=== PATIENT | female | born 1970 | race Caucasian/White ===

== ENCOUNTER 2020-09-18 13:34 | Outpatient (CLI) | payer BC, SELFPAY ==
--- NOTE | 2020-09-23 16:22 | WPDHOLTEREM ---
Holter/Event Monitor Holter/Event Monitor Date of procedure: 09/18/20 Procedure Type: 48 hour holter monitor Indications: Palpitations Conclusion: 1. 48 hour holter monitor on 09/18/20. 2. Underlying rhythm is sinus rhythm. HR range 46-130 bpm; average HR 77 bpm. 3. There are 15 premature supraventricular complexes, 1 supraventricular couplet and 1 supraventricular triplet. No supraventricular tachycardia. 4. No premature ventricular complexes. No ventricular tachycardia. 5. No sinoatrial or atrioventricular blocks. No significant pauses greater than 2 seconds. 6. No symptoms available for correlation.
== END 2020-09-18 13:35 | disposition home or self-care (01) ==
LOC: ANHCARD 13:36
PROVIDERS: PCP Physician Assistant; Visit Provider Physician Assistant
DX: R00.2 Palpitations (principal)
CPT/HCPCS: 93225; 93226

== ENCOUNTER 2023-10-15 10:20 | Emergency (ER) | payer BC, SELFPAY ==
[2023-10-15 10:37] VITALS: BP 143/74; PULSE 84; RESP 16; TEMP 37; O2SAT 98
--- NOTE | 2023-10-15 10:54 | ED.ABDPAIN ---
HPI - Abdominal Pain General Chief Complaint: Urogenital-Female Stated Complaint: left side pain Time Seen by Provider: 10/15/23 10:40 Source: patient Mode of arrival: ambulatory Limitations: no limitations History of Present Illness HPI narrative: Adriana is a 53-year-old female patient presenting to the clinic today with complaints of left flank pain radiating into the left lower abdomen. She reports his symptoms have been going off and on for 2 weeks. Was having the symptoms and discussed the case with tele doc and was given prescription for Macrobid to treat a UTI on September 27. States that this did improve her symptoms however her symptoms have now returned. Is reporting a deep ache in her left flank/back radiating into the left lower quadrant. Denies any urinary symptoms at this time. Denies any fever or chills. No history of kidney stones. Related Data Home Medications Medication Instructions Recorded Confirmed acetaminophen 500 mg tablet 500 mg PO Q6H PRN 09/11/20 08/24/22 (Tylenol Extra Strength) cholecalciferol (vitamin D3) 25 25 mcg PO DAILY 09/11/20 10/15/23 mcg (1,000 unit) capsule ibuprofen 200 mg tablet 200 mg PO Q6H PRN Pain, Mild 09/11/20 10/15/23 Allergies Allergy/AdvReac Type Severity Reaction Status Date / Time No Known Allergies Allergy Mild Verified 10/15/23 10:50 rox Allergy Unknown unknown Verified 08/24/22 08:34 Review of Systems Review of Systems: Pertinent positives per HPI. Patient denies any fever, chills, rash, headache, visual changes, dizziness, cough, runny nose, sore throat, shortness of breath, chest pain, palpitations, nausea, vomiting, diarrhea, constipation, abdominal pain, or any urinary issues. FOR[facility]LY [facility] Surgical History Surgical History H/O wrist surgery Family History Family History Father Family history of malignant neoplasm of brain, Onset Age: 51 Mother Ovarian cancer Grandparent Depression Hypertension Carcinoma of colon Other Family history of lung cancer Family history of lymphoma Family history of malignant neoplasm of cervix Social History Social History Smoking status: Never smoker Alcohol intake: never Substance use: unknown Comments At the time of my signature, I reviewed and agree with the nursing past medical, surgical, social, and family history. There is no relevant family history pertinent to the patient complaint. Exam Narrative: General: Well-developed, well nourished, in no apparent distress. Head: Normocephalic, atraumatic. Cardio: Regular rate and rhythm, s1 and s2 normal, no murmur appreciated. Resp: Clear to auscultation bilaterally, no rhonchi, rales, wheezing or rubs. Abdomen: Soft, pliable, bowel sounds present in all quadrants, left lower quadrant tender to palpation, no organomegly, left CVAT tenderness. Course Course Emergency Course: Portions of this record may have been created with voice recognition software. Level of Care: Express Care Visit Vital Signs Vital signs: Vital Signs Temperature 37.0 C 10/15/23 10:37 Pulse Rate 84 10/15/23 10:37 Respiratory Rate 16 10/15/23 10:37 Blood Pressure 143/74 H 10/15/23 10:37 Pulse Oximetry 98 10/15/23 10:37 Temperature 37.0 C 10/15/23 10:37 Pulse Rate 84 10/15/23 10:37 Respiratory Rate 16 10/15/23 10:37 Blood Pressure 143/74 H 10/15/23 10:37 Pulse Oximetry 98 10/15/23 10:37 Vital signs reviewed MDM - Abdominal Pain MDM Narrative Medical decision making narrative: At the time of visit patient is resting comfortably on the exam table. Patient appears to be nontoxic. UA positive for 2+ blood and trace of protein. Plan: Urine is positive for 2+ blood patient is having left flank pain radiating into left lower quadrant. I suspect
== END 2023-10-15 11:03 | disposition short-term general hospital (02) ==
PROVIDERS: Emergency Provider Nurse Practitioner Family; PCP Physician Assistant
DX: R10.9 Unspecified abdominal pain (principal); R10.32 Left lower quadrant pain; R31.9 Hematuria, unspecified
CPT/HCPCS: 81003; 99212; G0463

== ENCOUNTER 2023-10-15 11:15 | Emergency (ER) | payer BC, SELFPAY ==
--- NOTE | ~2023-10-15 | CT_ITS ---
EXAMINATION: CT abdomen pelvis wo con DATE: 10/15/2023 12:21 INDICATION: Left flank pain. TECHNIQUE: Computed tomography (CT) of the abdomen and pelvis was performed without intravenous contr ast. Automated exposure control and iterative reconstruction technique were employed. The dose-length product was 626.25 mGy-cm. COMPARISON: None. FINDINGS: The visualized portions of the lung bases demonstrate mild atelectasis. No pleural effusion . The heart size is normal. No pericardial effusion. There is a small sliding hiatal hernia. The live r is normal. The gallbladder is distended, likely secondary to fasting. The spleen, pancreas, adrenal glands, and right kidney are normal. There are 9 mm and 2 mm stones in left kidney. There are no dil ated loops of bowel. The appendix is normal. There are no pathologically enlarged lymph nodes. There is no free intraperitoneal fluid. There is mild lumbar spondylosis. IMPRESSION: 1. Nonobstructing left kidney stones. 2. Small sliding hiatal hernia. Reviewed, dictated and finalized at location A.
--- NOTE | 2023-10-15 11:24 | ED.BACK ---
HPI - Back Pain/Injury General Chief Complaint: Urogenital-Female Stated Complaint: flank pain Time Seen by Provider: 10/15/23 11:17 History of Present Illness HPI Narrative: Patient presenting with left-sided flank pain, she had had symptoms for the last 2 weeks but got much worse last night and to the point where she felt like she was going to throw up, and this morning she did ibuprofen but was still having some pain so she went to the Urgent Care, there was some blood in her urine, so they sent her here to make sure she does not have a kidney stone. She has never had a kidney stone before. She does state that a few weeks ago she had been having some dysuria and UTI symptoms and had and given antibiotics and that overall started feeling better, but she did notice that yesterday her urine which frothy. Related Data Home Medications Medication Instructions Recorded Confirmed acetaminophen 500 mg tablet 500 mg PO Q6H PRN 09/11/20 08/24/22 (Tylenol Extra Strength) cholecalciferol (vitamin D3) 25 25 mcg PO DAILY 09/11/20 10/15/23 mcg (1,000 unit) capsule ibuprofen 200 mg tablet 200 mg PO Q6H PRN Pain, Mild 09/11/20 10/15/23 Allergies Allergy/AdvReac Type Severity Reaction Status Date / Time No Known Allergies Allergy Mild Verified 10/15/23 10:50 rox Allergy Unknown unknown Verified 08/24/22 08:34 Review of Systems Review of Systems: All systems reviewed & are unremarkable except as noted in HPI and below PMFSH Surgical History Surgical History H/O wrist surgery Family History Family History Father Family history of malignant neoplasm of brain, Onset Age: 51 Mother Ovarian cancer Grandparent Depression Hypertension Carcinoma of colon Other Family history of lung cancer Family history of lymphoma Family history of malignant neoplasm of cervix Social History Social History Smoking status: Never smoker Alcohol intake: never Substance use: unknown Exam Narrative: EXAMINATION OF ORGAN SYSTEMS/BODY AREAS: Constitutional: Vital signs per nursing GENERAL:[No acute distress, non-toxic appearing.] HEAD: Normal with no signs of head trauma. EYES: EOMI, conjunctiva normal ENT: Hearing grossly intact LUNGS: Nonlabored breathing. HEART: [Regular rate and rhythm] ABD: [Soft], [nontender to palpation] BACK: L CVA tenderness EXT: Normal range of motion SKIN: [No rashes or lesions.] NEURO: [Alert and oriented x 3. No gross focal sensory or strength deficits.] PSYCH: Normal affect Course Vital Signs Vital signs: Vital Signs Temperature 98 F 10/15/23 11:29 Pulse Rate 73 10/15/23 11:29 Respiratory Rate 18 10/15/23 11:29 Blood Pressure 117/71 10/15/23 11:29 Pulse Oximetry 100 10/15/23 11:29 Oxygen Delivery Room Air 10/15/23 11:29 Temperature 98.0 F 10/15/23 13:11 Pulse Rate 90 10/15/23 13:11 Respiratory Rate 18 10/15/23 13:11 Blood Pressure 130/90 10/15/23 13:11 Pulse Oximetry 99 10/15/23 13:11 Oxygen Delivery Room Air 10/15/23 11:29 MDM - Back Pain/Injury MDM Narrative Medical decision making narrative: 1) Differential diagnosis: Pyelonephritis, kidney stone 2) Comorbidities: Low vitamin-D 3) External notes reviewed: n/a 4) History sources independently obtained from: Urgent care provider 5) Discussion of management with: n/a 6) Independent interpretation of: CT abdomen/pelvis which does show 1 large and 1 smaller stone in left kidney, no obvious hydronephrosis 7) Diagnostic tests or therapies considered but not ordered: Patient declining pain medication at this time 8) Social determinants of health: n/a 9) Shared decision makin-year-old female presenting with left flank pain that was much worse yesterday but is starting to get slightly better,
[2023-10-15 11:29] VITALS: BP 117/71; PULSE 73; RESP 18; TEMP 36.6; O2SAT 100
[2023-10-15 11:49] LABS: Appearance Urine Clear (Clear); Bacteria Urine None Seen /hpf; Bilirubin Urine Negative (Negative); Blood Urine Trace (Negative); Color Urine Yellow (Yellow); Glucose Urine UA Negative (Negative); Ketones Urine Negative (Negative); Leukocyte Esterase Ur Negative LEU/UL (Negative); Nitrate Urine Negative (Negative); Non Pathogenic Casts 0-2; Protein Urine Negative (Negative); RBC Urine 0-2 /hpf (0-2); Specific Grav Ur 1.008 (1.001-1.035); Squamous Epithelial Cell Urine None Seen /hpf (Few); Urobilinogen Urine 0.2 mg/dL (<2.0); WBC Urine 0-5 /hpf (0-3); pH Urine 5.5 (5.0-9.0)
[2023-10-15 12:03] LABS: Add Urine Microscopic? YES
[2023-10-15 13:11] VITALS: BP 130/90; PULSE 90; RESP 18; TEMP 36.7; O2SAT 99
== END 2023-10-15 13:13 | disposition home or self-care (01) ==
PROVIDERS: Emergency Provider Emergency Medicine; PCP Physician Assistant
DX: N20.0 Calculus of kidney (principal)
CPT/HCPCS: 74176; 81001; 81003; 99284

== ENCOUNTER 2025-03-19 18:29 | Emergency (ER) | payer BC, SELFPAY ==
--- NOTE | ~2025-03-19 | CT_ITS ---
CT abdomen pelvis wo con INDICATION:llq abd pain, poss stone . COMPARISON: None. TECHNIQUE: Axial 2.5 mm images of the abdomen were obtained without IV or oral contrast. Diagnostic sensitivity is limited due to lack of IV contrast. FINDINGS: The lung bases are clear. The liver parenchyma is unremarkable. No intrahepatic mass or ductal dilatation is evident. The gallbladder is unremarkable. The pancreas and spleen are normal in appearance. The adrenal glands are symmetric in size. The kidneys are unremarkable. 4 mm left renal stone. There is left hydronephrosis secondary to a 4 mm stone at the left ureteropelvic junction. The stomach and bowel loops are unremarkable. Appendicolith is noted within the appendix. There is no evidence of acute appendicitis. The bladder and rectum are normal. No free intraperitoneal fluid or air is evident. There is no significant retroperitoneal lymphadenopathy. The aorta, visceral vessels and renal arteries demonstrate normal caliber. The lower thoracic and lumbar vertebrae are in normal alignment. IMPRESSION: No acute abnormality is noted in the abdomen and pelvis. Left hydronephrosis secondary to a 4 mm stone at the UPJ. All CT scans at this facility are performed using low dose modulation techniques as appropriate to perform exam including the following: automated exposure control; use of iterative reconstruction technique; adjustment of the mA and/or kV according to patient size (this includes techniques or standardized protocols for targeted exams where dose is matched to indication/reason for exam). Reviewed, dictated and finalized at location S. IMPRESSION: No acute abnormality is noted in the abdomen and pelvis. Left hydronephrosis secondary to a 4 mm stone at the UPJ. All CT scans at this facility are performed using low dose modulation techniqu es as appropriate to perform exam including the following: automated exposure c ontrol; use of iterative reconstruction technique; adjustment of the mA and/or kV according to patient size (this includes techniques or standardized protocol s for targeted exams where dose is matched to indication/reason for exam).
[2025-03-19 18:38] VITALS: BP 138/76; PULSE 69; RESP 16; TEMP 36.4; O2SAT 100
[2025-03-19 18:48] LABS: BEDSIDEPREGUCG Negative (Negative)
[2025-03-19 18:51] LABS: Hematocrit 42.3 % (37.0-47.0); Hemoglobin 13.8 g/dL (12.0-15.0); Immature Granulocyte Percent A 0.2 % (0-0.5); Lymphocytes Absolute Auto 1.01 K/mm3 (0.9-3.2); Mean Corpuscular HGB Conc 32.6 g/dl (32-36); Mean Corpuscular Hemoglobin 30.0 pg (26-34); Mean Corpuscular Volume 92.0 fl (80-100); Nucleated Red Blood Cells Absolute Auto 0.000 K/mm3 (0.0-0.012); Nucleated Red Blood Cells Perc 0.0 % (0.0-0.2); Platelet Count Result 305 k/mm3 (150-375); Red Blood Count 4.60 M/mm3 (4.2-5.4); White Blood Count 6.4 K/mm3 (4.5-10.0)
[2025-03-19 19:04] LABS: Add Urine Microscopic? YES; Appearance Urine Turbid (Clear); Budding Yeast Urine Present /hpf; Glucose Urine UA Negative (Negative); Leukocyte Esterase Ur Trace LEU/UL (Negative); Need Manual Microscopic Reviewed; Nitrate Urine Negative (Negative); Non Pathogenic Casts 0-2; Specific Grav Ur 1.028 (1.001-1.035)
[2025-03-19 19:18] LABS: Alanine Aminotransferase 26 U/L (6-35); Albumin Level 4.8 g/dL (3.5-5.1); Alkaline Phosphatase 131 U/L (38-126); Anion Gap 8 mmol/L (4-12); Aspartate Amino Transferase 30 U/L (14-36); Bilirubin,Total 0.6 mg/dL (0.2-1.3); Blood Urea Nitrogen 19 mg/dL (7-17); Calcium 10.1 mg/dL (8.4-10.2); Carbon Dioxide 27 mmol/L (22-30); Chloride 101 mmol/L (98-107); Estimated CRCL calculation 81 ml/min; Estimated Glomerular Filt Rate > 60; Glucose 122 mg/dL (65-110); Potassium 4.0 mmol/L (3.4-5.0); Sodium 136 mmol/L (137-145); Total Protein 8.2 g/dL (6.3-8.2)
--- OUTSIDE RECORDS SUMMARY | 2025-03-19 20:02 | XMS_ITS | Clinical Summary ---
Author Organization [facility] Address [address] [place] [address] Care Team Providers Care Wafer Production Lead Worker Name Role Phone Hardeep Isaac MD Primary Care Provider [phone] Allergies Active Allergy Reactions Criticality Noted Date Comments Food Allergy Formula Swelling Medium 09/08/2018 Onward Toribio Unknown 11/09/2018 Medications acetaminophen (TYLENOL) 500 mg tablet Take 1 tablet (500 mg total) by mouth every 6 (six) hours as needed for pain Active ergocalciferol (VITAMIN D) 50,000 unit capsuleIndicati ons:Vitamin D deficiency Take 1 capsule (50,000 Units total) by mouth once a week For 12 wks, then monthly 4 capsule 11 03/01/2023 Active Active Problems Problem Noted Date Diagnosed Date History of colon polyps 09/30/2022 Swollen abdomen 2017 Immunizations Immunization Administration Dates Next Due Influenza, Quadrivalent, Spl it, Preservative Free, Intramuscular 04/02/2020,03/09/2019,03/20/2018 Influenza, Trivalent, IM (MDV) 03/27/2012 Influenza, Trivalent, Preser vative Free, Intramuscular 03/15/2017,03/16/2016 Influenza, Unspecified 02/17/2023 Surgical History Surgery Date Site/Laterality Comments WRIST FRACTURE SURGERY Right FLUORO GUIDED INJECTION SHOULDER RIGHT 09/28/2018 Ri ght FLUORO GUIDED INJECTION SHOULDER RIGHT 03/01/2019 Ri ght FLUORO GUIDED INJECTION SHOULDER LEFT 05/12/2021 Lef t KIDNEY STONE SURGERY 11/28/2023 - 12/28/2023 Medical History Medical History Date Comments Heart palpitations Family History Medical History Relation Name Comments Brain cancer Father Cancer Father Colon cancer Father's Sister Lymphoma Father's Sister Heart disease Maternal Grandmother Hypertension Maternal Grandmother Cancer Mother Ovarian cancer Mother Breast cancer Niece Relation Name Status Comments Father Father's Sister Maternal Grandmother Mother Niece Other Social History Tobacco Use Types Packs/Day Years Used Date Smoking Tobacco: Never Smokeless Tobacco: Never Tobacco Cessation:Counseling Given: Not Answered Alcohol Use Standard Drinks/Week Comments Yes 0 (1 standard drink = 0.6 oz pur e alcohol) rare AUDIT-C Answer Date Recorded Q1: How often do you have a drink containing alcohol? Never 05/07/2024 Q2: How many drinks containi ng alcohol do you have on a typical day when you are drinking? Patient does not drink Q3: How often do you have si x or more drinks on one occasion? Never 05/07/2024 Personal Safety Answer Date Recorded Have you ever been in or are you currently in a harmful physical or emotional relationship or is someone making you feel afraid or unsafe? Denies 12/15/2022 Comments No Sex and Gender Information Value Date Recorded Sex Assigned at Not on file Legal Sex Female 8:05 AM TRANSPORTATION EQUIPMENT PAINTER Gender Identity Not on file Sexual Orientation Not on file Obstetrics History Para Term AB IAB SAB Ectopic Multiple Livin g Live Births 5 3 3 2 2 3 3 Date Outcome GA Total Labor Labor/2nd/3rd Weight Sex Type Anes PTL Jackelin A1 A5 Name Clin 1996 Term M Vag-S pont Living Complications:Other (Comment ) 2000 Term F Vag-S pont Living Complications:None 2003 SAB Demise 2004 SAB Demise 2008 Term F Vag-S pont Living Complications:None Last Filed Vital Signs Vital Sign Reading Time Taken Comments Blood Pressure 107/73 05/07/2024 10:33 AM TRANSPORTATION EQUIPMENT PAINTER Pulse 71 02/09/2023 12:12 PM CDT Temperature 36.3 C (97.3 F) 12/15/2022 12:17 PM CDT Respiratory Rate 16 12/15/2022 12:40 PM CDT Oxygen Saturation 95% 12/15/2022 12:40 PM CDT Inhaled Oxygen Concentration - - Weight 81.2 kg (179 lb) 05/07/2024 10:33 AM TRANSPORTATION EQUIPMENT PAINTER Height 170.2 cm (5' 7) 05/07/2024 10:33 AM TRANSPORTATION EQUIPMENT PAINTER Body Mass Index 28.04 05/07/2024 10:33 AM TRANSPORTATION EQUIPMENT PAINTER Plan of Treatment Health Maintenance Due Date Last Done Comments Depression Screening 1970 Hepatitis C Screening 1970 DTaP/Tdap/Td Vaccine (1 - Tdap) 1980 Hepatitis B Screening 08/11/1987 Zoster Vaccine (1 of 2) 08/11/2019 Cervical Cancer Screening 02/10/2024 02/09/2023 Influenza Vaccine (#1) 2025 , 02/17/2023, 04/02/2020, Additional history exists Regular Well Visit/Exam 18-64 05/07/2025 05/07/2024, 02/09/2023, 12/09/2020 Breast Cancer Screening-Mammogram 05/31/2025 05/31/2024, 02/25/2023, 02/25/2022, Additional history exists Colon Cancer Screening-Colonoscopy 12/15/2032 12/15/2022, 07/28/2017 Colon Cancer Screening-CT Colonography Discontinued 12/15/2022, 07/28/2017 Colon Cancer Screening-DNA Stool Discontinued 12/15/2022, 07/28/2017 Colon Cancer Screening-FIT Discontinued 12/15/2022, Colon Cancer Screening-Sigmoidoscopy Discontinued 12/15/2022, 07/28/2017 Pneumococcal vaccine <65 Aged Out No longer eligible based on patient's age to complete this topic Procedures Procedure Name Priority Date/Time Associated Diagnosis Comments SCREENING MAMMOGRAM BILATERAL W BUDDY Schedule Routine, Read Routine (OP Routine) 05/31/2024 10:03 AM TRANSPORTATION EQUIPMENT PAINTER Screening mammogram, encounter for PAP AND HPV, REFLEX TO HPV GENOTYPES Routine 02/09/2023 1:03 PM CDT Cervical cancer screening COLONOSCOPY 12/15/2022 11:47 AM CDT from Last 3 Months or Most Recently Relevant to Health Maintenance Results * Screening Mammogram Bilateral W Buddy (05/31/2024 10:03 AM TRANSPORTATION EQUIPMENT PAINTER) Anatomical Region Laterality Modality Breast Bilateral Mammography Narrative 05/31/2024 3:33 PM TRANSPORTATION EQUIPMENT PAINTER Mammogram Technique: Bilateral Digital Breast Tomosynthesis, Bilateral C-view 2D Screening mammogram. Views obtained: bilateral craniocaudal and bilateral mediolateral oblique. Computer Aided Detection was performed. Mammogram Findings: The present examination has been compared to prior imaging studies performed at [facility] on 02/25/2022, 02/25/2023 and 03/25/2023. There are scattered areas of fibroglandular density. There are multiple masses in both breasts. There is no suspicious abnormality in either breast. Impression: There is no mammographic evidence of malignancy. Annual screening mammography is recommended. OVERALL FINAL ASSESSMENT: BI-RADS CATEGORY 2: Benign. Procedure Note Mariola De Jesus MD - 05/31/2024 Mammogram Technique: Bilateral Digital Breast Tomosynthesis, Bilateral C-view 2D Screening mammogram. Views obtained: bilateral craniocaudal and bilateral mediolateral oblique. Computer Aided Detection was performed. Mammogram Findings: The present examination has been compared to prior imaging studies performed at [facility] on 02/25/2022, 02/25/2023 and 03/25/2023. There are scattered areas of fibroglandular density. There are multiple masses in both breasts. There is no suspicious abnormality in either breast. Impression: There is no mammographic evidence of malignancy. Annual screening mammography is recommended. OVERALL FINAL ASSESSMENT: BI-RADS CATEGORY 2: Benign. us Self Screening Mammogram IMG MAMMO PROCEDURES Fi nal Result * Pap and HPV, reflex to HPV Genotypes (02/09/2023 1:03 PM CDT) CLINICAL INFORMATION: [email or web address] [facility] Comment:Routine exam LMP [email or web address] [facility] Comment:2019 Previous Pap [email or web address] [facility] Comment:NONE GIVEN Prev. Bx [email or web address] [facility] Comment:NONE GIVEN SOURCE: [email or web address] [facility] Comment:Cervix, Endocervix Pap, specimen adequacy [facility] Comment:SATISFACTORY FOR DORA LUATION HPV interp [facility] Comment: Cytology Results: Negative for intraepithelial lesion or malignancy. Atrophic pattern; predominantly parabasal cells Weight Clerk [facility] Comment: PCM, CT(ASCP) CT Screening Location: [place] [address] [address] [id number] [facility] Comment: EXPLANATORY NOTE: The Pap is a screening test for cervical cancer. It is not a diagnostic test and is subject to false negative and false positive results. It is most reliable when a satisfactory sample, regularly obtained, is submitted with relevant clinical findings and history, and when the Pap result is evaluated along with historic and current clinical information. EFFECTIVE APRIL 25, 2023, the version of ThinPrep you ordered, commonly known as manual ThinPrep, will be DISCONTINUED. An alternative form of ThinPrep, called ThinPrep Imaging, will continue to be available. For a copy of the client communication (TIS Client Letter) showing TIS test codes, see [email or web address], and navigate to Time Warden-Woman>Physician Materials>TIS Client Letter. You can also call for test code assistance. Human papillomavirus DNA, High Risk E6/E7 Not Detected NOT DETECTED Tamara Benson /Roel TORRES Comment: Not Detected High Risk HPV types (16,18,31,33,35,39,45,51,52, 56,58,59,66,68) were not detected. Other HPV types which cause anogenital lesions may be present. The significance of the other types of HPV in malignant processes has not been established. Methodology: Real Time PCR Thin prep 02/09/2023 1:03 PM CDT 02/09/2023 10:53 PM CDT Erendira Flores NP LAB CYTOLOGY ORDERABLES Final Result [place] [address] [address] [place] [id number] Tamara Benson/[place] [address] [facility] [place] [address] * COLONOSCOPY (12/15/2022 11:47 AM CDT) Anatomical Region Laterality Modality Other Narrative Procedure Note Stacie Lagos MD - 12/15/2022 11:47 AM CDT ENDOSCOPY LAB Patient Name: Adriana Anne Procedure Date: 12/15/2022 11:47 AM Date of : 1970 Admit Type: Outpatient Age: 52 Gender: Female Attending MD: Stacie Lagos M.D. Room: [facility] ENDOSCOPY ROOM 01 Note Status: Finalized Procedure: Colonoscopy Indications: High risk colon cancer surveillance: Personalhistory of colonic polyps, Last colonoscopy: July 2017 Providers: Stacie Lagos M.D. Referring MD: Hardeep Isaac MD Medicines: Monitored Anesthesia Care Complications: No immediate complications. Estimated Blood Loss: Estimated blood loss: none. Procedure: Pre-Anesthesia Assessment: - Immediately prior to administration ofmedications, the patient was re-assessed for adequacy to receive sedatives. The benefits, risks and alternatives of theprocedure and sedation were discussed and informed consentwas obtained. All questions were answered. Please referto the signed informed consent document in the medical record. The scope was passed under direct vision.The [id number] was introduced through the anusand advanced to the terminal ileum, with identificationof the appendiceal orifice and IC valve. Thecolonoscopy was performed without difficulty. The patient tolerated the procedure well. The quality of thebowel preparation was evaluated using the BBPS (BostonBowel Preparation Scale) with scores of: Right Colon = 3, Transverse Colon = 3 and Left Colon = 3 (entiremucosa seen well with no residual staining, smallfragments of stool or opaque liquid). The total BBPS score equals 9. Findings: The perianal and digital rectal examinations were normal. The terminal ileum appeared normal. A few medium-mouthed diverticula were found in the sigmoid colon. The exam was otherwise without abnormality. The retroflexed view of the distal rectum and anal verge was normaland showed no anal or rectal abnormalities. Impression: - The examined portion of the ileum was normal. - Diverticulosis in the sigmoid colon. - The examination was otherwise normal. - The distal rectum and anal verge are normal on retroflexion view. - No specimens collected. Recommendation: - Patient has a contact number available for emergencies. The signs and symptoms of potential delayed complications were discussed with thepatient. Return to normal activities tomorrow. Written discharge instructions were provided to thepatient. - Resume previous diet. - Continue present medications. - Repeat colonoscopy in 5 years for surveillance. Electronically by Dr Stacie Lagos Stacie Lagos M.D. 12/15/2022 12:20:50 PM Number of Addenda: 0 Note Initiated On: 12/15/2022 11:47 AM Stacie Lagos MD ENDOSCOPY PROCEDURES Final Result from Last 3 Months or Most Recently Relevant to Health [place] [address] [employer] [place] [address] [place] [address] [employer] [facility] OPEN ACCESS [facility] [employer] [place] Advance Directives For more information, please contact: [phone] * Full Code (Latest Code Status on File) Date Activated Date Inactivated Comments 12/15/2022 10:47 AM 12/15/2022 4:47 PM Care Teams Wafer Production Lead Worker Relationship Specialty Start Date End Date Hardeep Isaac MD [address] [facility] [address] [place] [address] PCP - General 05/12/21
--- OUTSIDE RECORDS SUMMARY | 2025-03-19 20:02 | XMS_ITS | Clinical Summary ---
Author Organization [facility] Care Team Providers Care Delinquent Tax Collector Assistant Name Role Phone Unavailable Primary Care Provider Unavailabl e Social History Tobacco Use Types Packs/Day Years Used Date Smoking Tobacco: Never Assessed Comments Unknown Sex and Gender Information Value Date Recorded Sex Assigned at Not on file Legal Sex Female 8:17 AM CDT Gender Identity Not on file Sexual Orientation Not on file Plan of Treatment Health Maintenance Due Date Last Done Comments Hepatitis C Virus (HCV) Screening 1970 TdaP Immunization 1970 Hepatitis B Immunization (1 of 3 - 19+ 3-dose series) 1988 Pap Smear 1990 Cervical Cancer Screening (CCS) 08/11/1999 HPV/Cotest 08/11/1999 Cologuard 2014 Colonoscopy 2014 Colorectal Cancer Screening 2014 Immunochemical Fecal Occult Blood 2014 Pneumococcal Immunization (50+ years) (1 of 1 - PCV) 08/11/2019 Zoster Immunization (1 of 2) 08/11/2019 Influenza Immunization (#1) 2025 11/0 08/2019, 03/09/2019, 03/19/2018, Additional history exists SARS-COV-2 Immunization ( - 2024- season) 2025 09/16/2020, 08/26/2020 Respiratory Syncytial Virus (RSV) Immunization (Adult) (1 - 1-dose 75+ series) 2044 Human Papillomavirus (HPV) Immunization Aged Out No longer eligible based on patient's age to complete this topic Meningococcal Immunization (ACWY) Aged Out No longer eligible based on patient's age to complete this topic Rotavirus Immunization Aged Out No lo nger eligible based on patient's age to complete this topic
--- OUTSIDE RECORDS SUMMARY | 2025-03-19 20:02 | XMS_ITS | Clinical Summary ---
Author Organization [facility] Address [address] [place] [address] Care Team Providers Care Instructional Systems Design Consultant Name Role Phone Unavailable Primary Care Provider Unavailabl e Source Comments [facility],non-owned Affiliates and Associated Physician Practices is amultiple site organization consisting of ambulatory clinics and hospital sitesin [place], [place], [place] and [place]. This disclosure is being madepursuant to the Care Everywhere program and may not contain all information available regarding this patient. Last updated 18.[facility] Immunizations Immunization Administration Dates Next Due INFLUENZA VACCINE, QUADR. (F LUZONE; FLULAVAL; FLUARIX; AFLURIA QUADRIVALENT; 6MO+), 0.5 ML (IIV4) 03/09/2019 Social History Tobacco Use Types Packs/Day Years Used Date Smoking Tobacco: Never Assessed Comments Unknown Sex and Gender Information Value Date Recorded Sex Assigned at Not on file Legal Sex Female 4:00 PM CDT Gender Identity Not on file Sexual Orientation Not on file Plan of Treatment Health Maintenance Due Date Last Done Comments COLOGUARD (AGES 45-75) - COL ON CA SCREENING 1969 COLON MONITORING 1969 COLONOSCOPY - COLON CA SCREENING 1969 CT COLONOGRAPHY - COLON CA SCREENING 1969 Colorectal Cancer Screening 1969 FIT - COLON CA SCREENING 1969 FLEX SIG - COLON CA SCREENING 1969 LIPID TESTING 1969 MAMMOGRAM 1969 HIV SCREENING 1984 HEPATITIS C SCREENING 08/06/1987 DTAP/TDAP/TD VACCINES (1 - Tdap) 1988 HEPATITIS B VACCINE (1 of 3 - 19+ 3-dose series) 1988 PNEUMOCOCCAL VACCINE 50+ (1 of 1 - PCV) 08/11/2019 ZOSTER VACCINE (1 of 2) 08/11/2019 DEPRESSION SCREENING 05/30/2024 COVID-19 VACCINE (1 - 2023-2 5 season) 2025 INFLUENZA VACCINE (#1) 2025 03/09/2019 HIB VACCINE Aged Out No longer eligi ble based on patient's age to complete this topic HPV VACCINE Aged Out No longer eligi ble based on patient's age to complete this topic MENINGOCOCCAL (Group B) VACC INE SHARED DECISION-MAKING Aged Out No longer eligibl e based on patient's age to complete this topic MENINGOCOCCAL GROUPS A/C/Y/W VACCINE Aged Out No longer eligible b ased on patient's age to [place] [address] [employer]
--- NOTE | 2025-03-19 20:15 | ED.ABDPAIN ---
HPI - Abdominal Pain General Chief Complaint: Abdominal Pain Stated Complaint: LLQ abd. pain, radiates to L. back Time Seen by Provider: 03/19/25 20:08 Source: patient Mode of arrival: ambulatory Limitations: no limitations History of Present Illness HPI narrative: This is a 54-year-old female with history of kidney stones who presents to the ED for left lower quadrant abdominal pain and left flank pain. Patient states that today, she had onset of left lower quadrant abdominal pain that began to radiate to her left flank that felt similar to her prior episode of kidney stones last year that did require lithotripsy. She states that the pain flared up a little bit later with nausea but no vomiting and began to radiate more into her suprapubic region. She has also began to have hematuria prompting her to come to the ED. Denies fevers, chills, chest pain, shortness of breath. Related Data Home Medications ?Medication ?Instructions ?Recorded ?Confirmed ?Last Taken ?Type acetaminophen 500 mg tablet 500 mg PO Q6H PRN 09/11/20 08/24/22 Unknown History (Tylenol Extra Strength) cholecalciferol (vitamin D3) 25 25 mcg PO DAILY 09/11/20 10/15/23 Unknown History mcg (1,000 unit) capsule ibuprofen 200 mg tablet 200 mg PO Q6H PRN Pain, Mild 09/11/20 10/15/23 Unknown History Allergies Allergy/AdvReac Type Severity Reaction Status Date / Time rox Allergy Intermediate Hives Verified 03/19/25 18:30 Review of Systems Review of Systems: Gen.: Denies fevers or chills Eyes: Denies eye pain or visual change ENT: Denies congestion Respiratory: Denies shortness of breath or cough CV: Denies chest pain or palpitations GI: As per HPI as per HPI Musculoskeletal: Denies back pain or muscle pain Neuro: Denies numbness, tingling, weakness or focal weakness Skin: Denies rash Except as documented, all other systems reviewed and negative PMFSH Surgical History Surgical History H/O wrist surgery Family History Family History Father Family history of malignant neoplasm of brain, Onset Age: 51 Mother Ovarian cancer Grandparent Depression Hypertension Carcinoma of colon Other Family history of lung cancer Family history of lymphoma Family history of malignant neoplasm of cervix Social History Social History Smoking status: Never smoker Alcohol intake: never Substance use: unknown Exam Narrative: APPEARANCE: No acute distress, nontoxic, resting in bed EYES: EOMI HEENT: Normocephalic, atraumatic, OMM RESPIRATORY: No respiratory distress Clear to auscultation bilaterally with no rhonchi wheezing or rales. CARDIOVASCULAR: Regular rate and rhythm without murmurs rubs or gallops. ABDOMINAL: Soft, mild tenderness palpation of the left lower quadrant without rebound or guarding. No CVA tenderness bilaterally. MUSCULOSKELETAl: Moves all extremities. No clubbing, cyanosis or edema. NEURO: Awake and alert. Following commands, speech normal, no focal deficits SKIN:: Warm, dry. No rashes lesions or abrasions PSYCHIATRIC: Normal affect/mood, Course Vital Signs Vital signs: Vital Signs Temperature 97.5 F L 03/19/25 18:38 Pulse Rate 69 03/19/25 18:38 Respiratory Rate 16 03/19/25 18:38 Blood Pressure 138/76 03/19/25 18:38 Pulse Oximetry 100 03/19/25 18:38 Oxygen Delivery Room Air 03/19/25 18:38 Temperature 97.5 F L 03/19/25 18:38 Pulse Rate 77 03/19/25 21:37 Respiratory Rate 16 03/19/25 21:37 Blood Pressure 127/70 03/19/25 21:37 Pulse Oximetry 99 03/19/25 21:37 Oxygen Delivery Room Air 03/19/25 21:29 MDM - Abdominal Pain MDM Narrative Medical decision making narrative: 54-year-old female presenting for left lower quadrant abdominal pain and left flank pain. On initial evaluation, patient was in no acute distress, afebrile, hemodynamically stable. She did have mild left lower quadrant tenderness palpation with mild left CVA tenderness. Patient was given Toradol and Zofran for her symptoms. CBC and CMP were without significant abnormalities. UA showed hematuria. CT abdomen/pelvis was obtained which did show a 4 mm stone at the UPJ with hydroureter. Patient does have follow-up with Dr. Mahmood, Urology, which I encouraged her to go to. She was given a urine strainer. She was given prescriptions for Toradol and Zofran. Patient was agreeable to this plan. Given strict return precautions. Differential Diagnosis Differential diagnosis: Likely abdominal pain, calculus of kidney, constipation, diverticulitis, gastroenteritis and small bowel obstruction Medical Records Attestation: I reviewed the patient's medical records. Lab Data Attestation: I reviewed the patient's lab results. 03/19/25 18:45 03/19/25 18:45 Labs: Lab Results 03/19/25 03/19/25 Range/Units 18:45 18:46 WBC 6.4 (4.5-10.0) K/mm3 RBC 4.60 (4.2-5.4) M/mm3 Hgb 13.8 (12.0-15.0) g/dL Hct 42.3 (37.0-47.0) % MCV 92.0 (80-100) fl MCH 30.0 (26-34) pg MCHC 32.6 (32-36) g/dl RDW 12.5 (11.5-14.5) % Plt Count 305 (150-375) k/mm3 MPV 9.4 (7.4-10.4) fl Immature Gran % (Auto) 0.2 (0-0.5) % Neut % (Auto) 74.9 H (45.5-73.1) % Lymph % (Auto) 15.8 L (18.3-44.2) % [place] % (Auto) 6.7 (2.6-8.5) % Eos % (Auto) 1.6 (0-4.4) % Baso % (Auto) 0.8 (0.2-1.2) % Lymph # (Auto) 1.01 (0.9-3.2) K/mm3 [place] # (Auto) 0.4 (0.1-0.6) K/mm3 Eos # (Auto) 0.1 (0-0.3) K/mm3 Baso # (Auto) 0.1 (0.0-0.1) K/mm3 Abs Immat Gran (auto) 0.01 (0.00-0.031) K/mm3 Absolute Neuts (auto) 4.8 (1.3-6.7) K/mm3 Absolute Nucleated RBC 0.000 (0.0-0.012) K/mm3 Nucleated RBC % 0.0 (0.0-0.2) % Sodium 136 L (137-145) mmol/L Potassium 4.0 (3.4-5.0) mmol/L Chloride 101 (98-107) mmol/L Carbon Dioxide 27 (22-30) mmol/L Anion Gap 8 (4-12) mmol/L BUN 19 H (7-17) mg/dL Creatinine 0.73 (0.7-1.0) mg/dL Estim Creat Clear Calc 81 ml/min Estimated GFR > 60 (59 - ) Glucose 122 H (65-110) mg/dL Calcium 10.1 (8.4-10.2) mg/dL Total Bilirubin 0.6 (0.2-1.3) mg/dL AST 30 (14-36) U/L ALT 26 (6-35) U/L Alkaline Phosphatase 131 H (38-126) U/L Total Protein 8.2 (6.3-8.2) g/dL Albumin 4.8 (3.5-5.1) g/dL Urine Color Dark yellow (Yellow) Urine Appearance Turbid H (Clear) Urine pH 5.0 (5.0-9.0) Ur Specific Keeler 1.028 (1.001-1.035) Urine Protein 2+ H (Negative) mg/dL Urine Glucose (UA) Negative (Negative) mg/dL Urine Ketones Negative (Negative) mg/dL Ur Blood (Man) 3+ H (Negative) Urine Nitrate Negative (Negative) Urine Bilirubin 1+ H (Negative) Urine Urobilinogen 1.0 (<2.0) mg/dL Add Ur Microanalysis Reviewed Leukocyte Esterase Rfl Trace H (Negative) TAYLOR/UL Urine RBC >100 H (0-2) /hpf Urine WBC 0-5 (0-3) /hpf Ur Squamous Epith Cells Few (Few) /hpf Urine Bacteria None seen /hpf Urine Casts 0-2 Urine Yeast (Budding) Present H (None) /hpf POC Urine HCG, Qual Negative (Negative) Imaging Data Attestation: I personally reviewed and interpreted this imaging study as follows: Radiologist's impression: ITS Impressions Abdomen/Pelvis CT 03/19/25 20:57 IMPRESSION: No acute abnormality is noted in the abdomen and pelvis. Left hydronephrosis secondary to a 4 mm stone at the UPJ. All CT scans at this facility are performed using low dose modulation techniques as appropriate to perform exam including the following: automated exposure control; use of iterative reconstruction technique; adjustment of the mA and/or kV according to patient size (this includes techniques or standardized protocols for targeted exams where dose is matched to indication/reason for exam). Discharge Plan Discharge Clinical Impression: Ureterolithiasis Patient Disposition: Home Condition: Stable Instructions: Antibiotic Form, Kidney Stones (ED), How to Strain Your Urine (ED) Additional Instructions: CT scan was consistent with a kidney stone. It is near the kidney at this point in a small enough that it will likely pass in the coming days. You should strain your urine. Your given prescriptions for Flomax and Toradol take these as prescribed. Follow-up with Dr. Brown, urology, in the next week for re-evaluation. Return to the ED for any new or worsening symptoms. Do not take ibuprofen if you are taking Toradol. Patient Language: Lebanese Prescriptions: New tamsulosin [Flomax] 0.4 mg capsule 0.4 mg PO HS Qty: 30 0RF ketorolac 10 mg tablet 10 mg PO Q8H PRN (Reason: pain, severe) Qty: 15 0RF Rx Instructions: maximum total duration of 5 days from all oral, intranasal, or parenteral formulations No Action omeprazole 20 mg capsule,delayed release(DR/EC) 20 mg PO DAILY Qty: 30 0RF naproxen 500 mg tablet 500 mg PO BID Qty: 60 0RF cholecalciferol (vitamin D3) 25 mcg (1,000 unit) capsule 25 mcg PO DAILY acetaminophen [Tylenol Extra Strength] 500 mg tablet 500 mg PO Q6H PRN ibuprofen 200 mg tablet 200 mg PO Q6H PRN (Reason: Pain, Mild) tamsulosin [Flomax] 0.4 mg capsule 0.4 mg PO DAILY Qty: 14 0RF Follow-up/Referrals: Dylan Sheets DO [Primary Care Provider, Internal Medicine] Walter Mahmood MD [Physician, Urology]
--- OUTSIDE RECORDS SUMMARY | 2025-03-19 20:24 | XMS_ITS | Clinical Summary ---
Author Organization [facility] Address [address] [place] [address] Care Team Providers Care Food Analyst Name Role Phone Hardeep Isaac MD Primary Care Provider [phone] Allergies Active Allergy Reactions Criticality Noted Date Comments Food Allergy Formula Swelling Medium 09/08/2018 [place] Toribio Unknown 11/09/2018 Medications acetaminophen (TYLENOL) 500 [...] on file Legal Sex Female 8:05 AM RETAIL EVENT AND SALES ASSISTANT Gender Identity Not on file Sexual Orientation [...] Comments Blood Pressure 107/73 05/07/2024 10:33 AM RETAIL EVENT AND SALES ASSISTANT Pulse 71 02/09/2023 12:12 PM CDT Temperature 36.3 C (97.3 F) 12/15/2022 12:17 PM CDT Respiratory Rate 16 12/15/2022 12:40 PM CDT Oxygen Saturation 95% 12/15/2022 12:40 PM CDT Inhaled Oxygen Concentration - - Weight 81.2 kg (179 lb) 05/07/2024 10:33 AM RETAIL EVENT AND SALES ASSISTANT Height 170.2 cm (5' 7) 05/07/2024 10:33 AM RETAIL EVENT AND SALES ASSISTANT Body Mass Index 28.04 05/07/2024 10:33 AM RETAIL EVENT AND SALES ASSISTANT Plan of Treatment Health Maintenance Due Date [...] Read Routine (OP Routine) 05/31/2024 10:03 AM RETAIL EVENT AND SALES ASSISTANT Screening mammogram, encounter for PAP AND HPV, REFLEX TO HPV GENOTYPES Routine 02/09/2023 1:03 PM CDT Cervical cancer screening COLONOSCOPY 12/15/2022 11:47 AM CDT from Last 3 Months or Most Recently Relevant to Health Maintenance Results * Screening Mammogram Bilateral W Buddy (05/31/2024 10:03 AM RETAIL EVENT AND SALES ASSISTANT) Anatomical Region Laterality Modality Breast Bilateral Mammography Narrative 05/31/2024 3:33 PM RETAIL EVENT AND SALES ASSISTANT Mammogram Technique: Bilateral Digital Breast Tomosynthesis, Bilateral C-view 2D Screening mammogram. Views obtained: bilateral craniocaudal and bilateral mediolateral oblique. Computer Aided Detection was performed. Mammogram Findings: The present examination has been compared to prior imaging studies performed at [facility] on 02/25/2022, 02/25/2023 and 03/25/2023. There are [...] compared to prior imaging studies performed at [facility] on 02/25/2022, 02/25/2023 and 03/25/2023. There are [...] Genotypes (02/09/2023 1:03 PM CDT) CLINICAL INFORMATION: [employer] [facility] Comment:Routine exam LMP [employer] [facility] Comment:2019 Previous Pap [employer] [facility] Comment:NONE GIVEN Prev. Bx [employer] [facility] Comment:NONE GIVEN SOURCE: [employer] [facility] Comment:Cervix, Endocervix Pap, specimen adequacy [facility] Comment:SATISFACTORY FOR DORA LUATION HPV interp [facility] Comment: Cytology Results: Negative for intraepithelial lesion or malignancy. Atrophic pattern; predominantly parabasal cells Lunchroom Supervisor [facility] [facility] Comment: PCM, CT(ASCP) CT Screening Location: [place] [address] [address] [place] [address] Comment [facility] Comment: EXPLANATORY NOTE: The Pap is [...] Client Letter) showing TIS test codes, see [email or web address], and navigate to [employer]>Physician Materials>TIS Client Letter. You can also call [...] Flores NP LAB CYTOLOGY ORDERABLES Final Result [place] [address] [address] [place] [id number] Tamara Benson/[place] [address] [address] [place] [address] * COLONOSCOPY (12/15/2022 11:47 AM CDT) Anatomical [...] The scope was passed under direct vision.The [id number] was introduced through the anusand advanced to [...] Most Recently Relevant to Health Maintenance [place] [address] [place] [address] [place] [address] [employer] [facility]ESS [facility] [employer] [place] Advance Directives For more information, please contact: [phone] * Full Code (Latest Code Status on File) Date Activated Date Inactivated Comments 12/15/2022 10:47 AM 12/15/2022 4:47 PM Care Teams Food Analyst Relationship Specialty Start Date End Date Hardeep Isaac MD [address] [facility] [address] [place] [address] PCP - General 05/12/21
--- OUTSIDE RECORDS SUMMARY | 2025-03-19 20:24 | XMS_ITS | Clinical Summary ---
Author Organization [facility] Care Team Providers Care Patent Prosecution Attorney Name Role Phone Unavailable Primary Care Provider [...]
[2025-03-19] MEDS: ONDANSETRON INJ 4 MG/2 ML VIAL IV PUSH (21:25)
[2025-03-19] MEDS: KETOROLAC 30 MG/ML VIAL (*BKC) IV PUSH (21:26)
[2025-03-19 21:29] VITALS: BP 127/70; PULSE 74; RESP 18; O2SAT 97
[2025-03-19 21:37] VITALS: BP 127/70; PULSE 77; RESP 16; O2SAT 99
== END 2025-03-19 21:38 | disposition home or self-care (01) ==
PROVIDERS: Emergency Medicine; Emergency Provider Student in an Organized Health Care Education/Training Program; PCP Internal Medicine
DX: N12 Tubulo-interstitial nephritis, not specified as acute or chronic (principal)
CPT/HCPCS: 36415; 74176; 80053; 81001; 81025; 85025; 96361; 96374; 96375; 99284; J1885; J2405

== ENCOUNTER 2025-04-05 08:55 | Outpatient (CLI) | payer BC, SELFPAY ==
--- NOTE | ~2025-04-05 | XR_ITS ---
EXAMINATION: XR abdomen/kub 1V, 04/05/2025 9:09 CARETAKER RESORT HISTORY: calcium kidney stone, left side pain x 2 weeks COMPARISON: No comparisons available. Technique: 3 view. Findings: Bowel gas pattern unremarkable. No obstruction. Moderate fecal content limits evaluation, no renal calculi are identified No acute osseous abnormality. Impression: 1. No acute abnormality. Reviewed, dictated and finalized at location P. TAKER RESORT Impression: 1. No acute abnormality.
--- NOTE | ~2025-04-05 | US_ITS ---
EXAM/PROCEDURE: US retroperitoneal comp HISTORY: calcium kidney stone COMPARISON: CT of the abdomen from March 19, 2025 TECHNIQUE: Bilateral renal ultrasound FINDINGS: Right kidney measures 9.7 x 3.7 x 3.9 cm with what appears to be small extrarenal pelvis. No hydronephrosis. The left kidney measures 11.4 x 3.9 x 4.6 cm with mild to moderately severe hydronephrosis. Bilateral ureteral jets are demonstrated. No gross abnormality seen in the visualized portions of the urinary bladder. Incidentally noted, gallbladder sludge and gallstones in the gallbladder. IMPRESSION: Mild to moderate left-sided hydronephrosis. Incidental note of cholelithiasis. Reviewed, dictated and finalized at location A. E CEMENT MOULDER
== END 2025-04-05 08:56 | disposition home or self-care (01) ==
LOC: GOSHIMG 08:56
PROVIDERS: PCP Urology; Visit Provider Urology
DX: N20.0 Calculus of kidney (principal)
CPT/HCPCS: 74018; 76770